=== PATIENT | male | born 1950 | race Two or more races ===

== ENCOUNTER 2021-10-02 07:00 | Inpatient (IN) | payer OTHER ==
[~2021-10-02] VITALS: Ht 170.2 cm; Wt 82.6 kg
[2021-10-02] MEDS ORDERED: GLUMETZA500 MG PO (08:40)
[2021-10-02] MEDS ORDERED: LIPIT PO (08:41)
[2021-10-02] MEDS ORDERED: HORIZANT300 MG PO (08:41)
[2021-10-05] MEDS ORDERED: FAMOTIDINE20 MG (15:09)
[2021-10-05] MEDS ORDERED: DESVENLAFAXINE50 M3 (15:10)
[2021-10-05] MEDS ORDERED: ATORVASTATIN CA10 MG (15:10)
[2021-10-05] MEDS ORDERED: LISINOPRIL2.5 MG (15:10)
[2021-10-05] MEDS ORDERED: LATANOPROST2.5 ML (15:10)
[2021-10-05] MEDS ORDERED: GABAPENTIN300 M2 (15:10)
[2021-10-05] MEDS ORDERED: CLONAZEPAM1 MG (15:10)
[2021-10-05] MEDS ORDERED: OPTIVE EYE DROP15 ML (15:11)
[2021-10-05] MEDS ORDERED: RESTORIL15 MG (15:11)
[2021-10-05] MEDS ORDERED: PANTOPRAZOLE SO40 MG (15:11)
[2021-10-05] MEDS ORDERED: OPTIMAL D3 M350 MCG (15:11)
== END 2021-10-09 20:58 | disposition home or self-care (01) | DRG 331 ==
LOC: SURH 10-05 07:00 → O/R 10-05 08:47 → SURH 10-05 10:00
PROVIDERS: ADMIT Surgery; ATTEND Surgery
PROC: 07BB4ZZ Excision of Mesenteric Lymphatic, Percutaneous Endoscopic Approach (ICD-10-PCS; 2021-10-05)
PROC: 0DTF4ZZ Resection of Right Large Intestine, Percutaneous Endoscopic Approach (ICD-10-PCS; principal; 2021-10-05 10:00)
DX: D12.0 Benign neoplasm of cecum (principal); K57.30 Diverticulosis of large intestine without perforation or abscess without bleeding; R59.0 Localized enlarged lymph nodes; K59.09 Other constipation; Z20.822 Contact with and (suspected) exposure to COVID-19